=== PATIENT | male | born 2000 | race Caucasian/White ===

== ENCOUNTER 2020-02-21 10:24 | Emergency (ER) | payer OTHER, SELFPAY ==
[2020-02-21 10:29] VITALS: BP 138/79; PULSE 107; RESP 16; TEMP 36.3; O2SAT 96
--- NOTE | 2020-02-21 12:36 | ED.WOUNDLAC ---
HPI - Wound/Laceration General Chief Complaint: Wound/Laceration Stated Complaint: Cyst on Tailbone Time Seen by Provider: 02/21/20 11:03 Source: patient Mode of arrival: ambulatory Limitations: no limitations History of Present Illness HPI narrative: This is a 19-year-old male that presents the emergency department for cyst present for the last 5 days. Reports a cyst on his tailbone that has become painful. He has been taking ibuprofen with little relief. Does report some drainage from the area. Denies fever vomiting. Related Data Allergies Allergy/AdvReac Type Severity Reaction Status Date / Time No Known Allergies Allergy Mild Verified 02/21/20 10:33 Review of Systems Review of Systems: Narrative: CONSTITUTIONAL: Denies fever GASTROINTESTINAL: Denies vomiting SKIN: Reports abscess All systems reviewed & are unremarkable except as noted in HPI and below PMFSH Past Medical History Medical History (Updated 02/21/20 @ 12:40 by Sarah Schroeder PA-C) No active medical problems Social History Social History (Updated 02/21/20 @ 12:37 by Sarah Schroeder PA-C) Smoking status: Never smoker Gender identity (if verbalized by the patient): Male Exam Narrative: Exam Narrative: GENERAL: Well-appearing, well-nourished, and in no acute distress. HEAD: Normocephalic, atraumatic. EYES: EOMI. BACK: Pilonidal abscess present with mild surrounding cellulitis EXTREMITIES: Normal range of motion. No edema. SKIN: Warm, dry, no rash. NEURO: No focal deficits. Alert and oriented x3. PSYCH: Normal mood and affect Course Vital Signs Vital signs: Vital Signs Temperature 97.3 F L 02/21/20 10:29 Pulse Rate 107 H 02/21/20 10:29 Respiratory Rate 16 02/21/20 10:29 Blood Pressure 138/79 02/21/20 10:29 Pulse Oximetry 96 02/21/20 10:29 Temperature 97.3 F L 02/21/20 10:29 Pulse Rate 107 H 02/21/20 10:29 Respiratory Rate 16 02/21/20 10:29 Blood Pressure 138/79 02/21/20 10:29 Pulse Oximetry 96 02/21/20 10:29 Procedures Abscess I/D back: Date of Incision: 02/21/20 Time of Incision: 12:39 Local Anesthetic: lidocaine 1% and with epi Amount of anesthesia used (mL): 3 Technique: incised with #11 blade Packing used?: iodoform I&D Results: Pus and Blood MDM - Wound/Laceration MDM Narrative Medical decision making narrative: Patient presents the emergency department for pilonidal abscess. He is afebrile and nontoxic-appearing. Abscess successfully drained. He was educated on wound care. Patient will be given primary care doctor for follow-up. Patient is stable and felt appropriate for further outpatient evaluation. He is to follow-up with primary care doctor Critical Care Time Critical Care Time Critical Care Time: No Discharge Plan Discharge Clinical Impression: Abscess Patient Disposition: Home, Self-Care Condition: Stable Instructions: Antibiotic Form, Pilonidal Cyst (ED), Abscess (ED) Additional Instructions: Return if symptoms worsen or any concerns: any increase in redness, swelling, pain or fever over 101 Take antibiotics as directed. Clean wound with mild soapy water. Apply antibiotic ointment and clean dressing at least three times daily. Warm compresses 3 times a day for 30 minutes each Follow up with primary care in the next 2-3 days for re-evaluation and packing removal Prescriptions: New cephalexin 500 mg capsule 500 mg PO Q6H 7 Days Qty: 28 RF: 0 metronidazole 500 mg tablet 500 mg PO Q8H 7 Days Qty: 21 RF: 0 Follow-up/Referrals: Rossy Pablo MD [Primary Care Provider] - Alfonso Cid MD [Physician] - 3 Days Stand Alone Forms: Work/School Release IP
[2020-02-21 13:27] VITALS: PULSE 90; RESP 20; O2SAT 98
== END 2020-02-21 13:29 | disposition home or self-care (01) ==
PROVIDERS: Emergency Provider Emergency Medicine; PCP Pediatrics
DX: L05.01 Pilonidal cyst with abscess (principal)
CPT/HCPCS: 10061; 10080; 99283